=== PATIENT | male | born 1955 | race Caucasian/White ===

== ENCOUNTER → 2019-11-23 11:02 | Outpatient (BNVA) | payer MEDICARE, SELFPAY | PROVIDERS: Family Provider Family Medicine; PCP Family Medicine; Visit Provider Family Medicine | DX: L57.0 Actinic keratosis (principal); R97.20 Elevated prostate specific antigen [PSA] | CPT/HCPCS: 84153 ==

== ENCOUNTER → 2019-12-03 10:18 | Outpatient (BNVA) | payer MEDICARE, BC, SELFPAY | PROVIDERS: Family Provider Family Medicine; PCP Family Medicine; Visit Provider Urology | DX: R39.9 Unspecified symptoms and signs involving the genitourinary system (principal); R97.20 Elevated prostate specific antigen [PSA] | CPT/HCPCS: 81001 ==

== ENCOUNTER → 2020-05-30 13:14 | Outpatient (BNVA) | payer BC, SELFPAY | PROVIDERS: Family Provider Family Medicine; PCP Family Medicine; Visit Provider Urology | DX: R97.20 Elevated prostate specific antigen [PSA] (principal) | CPT/HCPCS: 84153 ==

== ENCOUNTER 2020-06-09 13:39 | Outpatient (CLI) | payer MEDICARE, SELFPAY ==
--- NOTE | 2020-06-09 13:55 | USCV_ITS ---
Heraclio Noe Age: 65 Gender: M : 1955 Exam Date: 06/09/2020 14:18 Ordering Phys: Monisha Cooper BUSHLER BUSHLER Technologist: Tasneem Mendoza Exam Location: [facility]_ Indication: PAINFUL AREAS LT LEG PROCEDURES: Venous duplex imaging was performed in bilateral lower extremities. The following venous structures were evaluated: common femoral vein, profunda vein, proximal portion of the greater saphenous vein, superficial femoral vein, and the popliteal vein. In addition, the posterior tibial and peroneal trunk were evaluated. FINDINGS: Normal 2-D Doppler and augmentation and compressibility throughout the lower extremity venous structures. Additional imaging through the proximal calf veins also reveals no thrombus. Limited evaluation of the greater saphenous vein is patent with no thrombus.. CONCLUSIONS No evidence of right lower extremity DVT. No evidence of left lower extremity DVT. Chinedu Rodríguez MD (Electronically Signed) Final Date: 09 June 2020 16:12 S
== END 2020-06-09 13:40 | disposition home or self-care (01) ==
LOC: RAD 13:51
PROVIDERS: PCP Family Medicine; Visit Provider Nurse Practitioner
DX: M79.605 Pain in left leg (principal)
CPT/HCPCS: 93970

== ENCOUNTER → 2020-06-13 11:07 | Outpatient (BNVA) | payer MEDICARE, SELFPAY | PROVIDERS: PCP Family Medicine; Visit Provider Family Medicine | DX: I83.819 Varicose veins of unspecified lower extremity with pain (principal); R97.20 Elevated prostate specific antigen [PSA]; R03.0 Elevated blood-pressure reading, without diagnosis of hypertension; Z01.818 Encounter for other preprocedural examination | CPT/HCPCS: 80048 ==

== ENCOUNTER 2020-06-24 12:37 | Outpatient (CLI) | payer MEDICARE, SELFPAY ==
[2020-06-24] MEDS: iohexol 300 mg/mL 100 mL Btl IV (13:19)
--- NOTE | 2020-06-24 14:30 | CT_ITS ---
WS: [id number] CT ABDOMEN AND PELVIS WITH CONTRAST HISTORY: Leg pain and vein swelling, concern for pelivc mass TECHNIQUE: Imaging performed of the abdomen and pelvis with IV contrast. Single phase imaging of the abdomen. Coronal and sagittal reformats are submitted. All CT scans at [facility] use at least one of these dose optimization techniques: automated exposure control; mA and/or kV adjustment per patient size (includes targeted exams where dose is matched to clinical indication); or iterativ e reconstruction. IV CONTRAST: Omnipaque 300; 95 mL IV. Oral contrast: Yes. DLP: 1095.69 mGycm COMPARISON: None available. Lower thorax: Lung bases are clear. Heart is normal size. Small hiatal hernia. Liver/biliary system: Normal size liver. Areas of decreased attenuation along the falciform ligament from hepatic steatosis. No bile duct dilatation. Gallbladder: Mildly contracted gallbladder, no stones identified. Pancreas: Pancreatic head and uncinate process are prominent for patient's age. No discrete mass or a bnormal enhancement. Common bile duct at the pancreatic head and pancreatic duct are normal. Spleen: Normal. Adrenal glands: Normal. Right kidney: Normal. Left kidney: Normal size kidney. Cortical hypodensity measures 3 mm in the lower pole. Aorta: Mild atherosclerosis. No aneurysm. Lymphadenopathy: None. Free fluid: None. GI tract: Prior appendectomy. There is diffuse moderate fecal retention. No obstruction or mucosal th ickening. Abdominal wall: Unremarkable abdominal wall. No hernia. Pelvis: Nondistended urinary bladder. There is no free fluid or adenopathy. Prostate gland is small s ize and contain central calcifications. There is mild fat stranding adjacent to the seminal vesicles. Bones: Moderate disc space narrowing and osteochondrosis at L4-5. No osteoblastic or osteolytic bone disease. Partial fusion of the SI joints. CT/CT abdomen pelvis w con* [id number] IMPRESSION: 1. No pelvic mass is identified. There is no ascites. 2. Mild prominence of the pancreatic head and uncinate process with no discret e mass or abnormal enhancement. Suggest ultrasound follow-up to reevaluate the pancreas. Favor this is probably normal appearance for this patient. 3. Small hiatal hernia. 4. Prior appendectomy.
== END 2020-06-24 12:38 | disposition home or self-care (01) ==
LOC: RADWPI 12:45
PROVIDERS: PCP Family Medicine; Visit Provider Family Medicine
DX: M79.604 Pain in right leg (principal); M79.605 Pain in left leg; M79.89 Other specified soft tissue disorders; K44.9 Diaphragmatic hernia without obstruction or gangrene
CPT/HCPCS: 74177; Q9967

== ENCOUNTER → 2020-08-30 10:25 | Outpatient (BNVA) | payer MEDICARE, SELFPAY | PROVIDERS: PCP Family Medicine; Visit Provider Urology | DX: R97.20 Elevated prostate specific antigen [PSA] (principal) | CPT/HCPCS: 81003 ==

== ENCOUNTER → 2021-01-02 15:29 | Outpatient (BNVA) | payer MEDICARE, SELFPAY | PROVIDERS: PCP Family Medicine; Visit Provider Family Medicine | DX: I82.591 Chronic embolism and thrombosis of other specified deep vein of right lower extremity (principal); K21.00 Gastro-esophageal reflux disease with esophagitis, without bleeding; I10 Essential (primary) hypertension; Q45.3 Other congenital malformations of pancreas and pancreatic duct; R97.20 Elevated prostate specific antigen [PSA]; R73.9 Hyperglycemia, unspecified; J45.20 Mild intermittent asthma, uncomplicated | CPT/HCPCS: 80053; 83036; 84153 ==

== ENCOUNTER 2021-03-24 09:25 | Outpatient (CLI) | payer MEDICARE, SELFPAY ==
--- NOTE | 2021-03-24 09:37 | US_ITS ---
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 Liver is normal size and echogenicity with no mass or intrahepatic dilatati on. Gallbladder: Normally distended with no gallstones, wall thickening or pericholecystic fluid. Gallbladder wall thickness: 0.3 cm. Pancreas: Not well visualized. CBD: 0.6 cm. Right kidney: 10.2 cm x 5.8 cm x 4.3 cm. No mass, cortical thickening or hydronephrosis. Left kidney: 10.4 cm x 5.1 cm x 4.3 cm. No mass, cortical thickening or hydronephrosis. Spleen: Normal size and echogenicity. Abdominal aorta and IVC are within normal limits. No ascites. US/US abdomen complete* [id number] IMPRESSION: Normal complete abdomen ultrasound.
== END 2021-03-24 09:26 | disposition home or self-care (01) ==
LOC: RAD 09:31
PROVIDERS: PCP Family Medicine; Visit Provider Family Medicine
DX: Q45.3 Other congenital malformations of pancreas and pancreatic duct (principal)
CPT/HCPCS: 76700

== ENCOUNTER 2021-07-17 16:19 | Emergency (ER) | payer MEDICARE, SELFPAY ==
[2021-07-17 16:49] VITALS: BP 172/100; PULSE 78; RESP 16; TEMP 36.8; O2SAT 95
--- NOTE | 2021-07-17 17:33 | XRR_ITS ---
PROCEDURE INFORMATION: Exam: XR Chest Exam date and time: 07/17/2021 5:33 PM Age: 66 years old Clinical indication: Sternal or substernal pain; Prior surgery; Surgery type: Trach; Additional info: Chest pain TECHNIQUE: Imaging protocol: XR of the chest. Views: 1 view. COMPARISON: CT abdomen pelvis w con* [id number] 06/24/2020 1:11 PM FINDINGS: Lungs: Unremarkable. No consolidation. Pleural spaces: Unremarkable. No pleural effusion. No pneumothorax. Heart/Mediastinum: Unremarkable. No cardiomegaly. Bones/joints: Unremarkable. XR/XR chest 1V portable [id number] IMPRESSION: Negative for infiltrate
--- NOTE | 2021-07-17 18:41 | ED_ITS ---
HPI - Chest Pain General: Chief Complaint: Chest Pain Stated Complaint: SENT BY PCP FOR COMPLETE CHECK OUT Time Seen by Provider: 07/17/21 18:32 History of Present Illness: HPI narrative: This patient is a 66-year-old male who presents to the emergency department complaint of chest pain has been off and on for weeks. Patient believes he just underneath a lot of stress. Patient within the past 6 months has lost his stepfather and his mother. Patient has a lso had a difficulty settling the estate of his mother. 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 Patient does have a history of cancer and has a chronic tracheostomy since 1985. Will do medical evaluation treat as needed. MD complaint: chest pain Onset (ago): week(s) Timing of current episode: episodic Pain location: substernal Pain radiation: none Severity: moderate Quality: tightness and aching Relieving factors: nothing Exacerbating factors: nothing Associated symptoms: Deny abdominal pain, dyspnea, fever(s), nausea, palpitations or vomiting Review of Systems General: Reports: 10 or more systems reviewed and unremarkable except in HPI and below Const: Denies: fever(s), chills, body aches or fatigue Eyes: Denies: change in vision or blurry vision ENMT: Denies: throat pain, hoarseness or mouth pain Card: Reports: chest pain; Denies: palpitations, irregular heart rhythm, edema, swelling of feet/ankles or lightheadedness Resp: Reports: non-productive cough; Denies: dyspnea, productive cough, wheezing or pain on inspiration GI: Denies: abdominal pain, nausea or vomiting : Denies: flank pain, dysuria, urinary frequency, urinary urgency or urinary hesitancy Musc: Denies: neck pain, back pain, extremity pain, extremity swelling, joint pain, joint swelling, joint redness, joint warmth or limited range of motion Skin/Breast: Denies: rash, pruritus, erythema or skin tenderness Neuro: Denies: headache(s), numbness in extremities or weakness in extremities Psych: Denies: anxiety or depression PFSH ED PFSH: Medical History Adenoid cystic carcinoma Allergic rhinitis Asthma Elevated PSA Chronically elevated PSA with no accelerating trend over time. Normal ELIF. Has declined prostate biopsy. We will only refer back to urology if he is having symptoms and wants to have a prostate biopsy GERD with esophagitis Hypertension Left varicocele Malignant hypertension Nocturia Surgical History H/O circumcision History of appendectomy History of tracheostomy Hx of tonsillectomy S/P hemorrhoidectomy Family History Grandmother Diabetes Social History Smoking and tobacco status: former smoker Alcohol intake: never Marital status: Current occupational status: employed History of recent travel: No Physical Exam Const: COMMON NORMALS: no acute distress, average body habitus, patient oriented x3, no limitations, healthy appearing, alert and well nourished HENMT: COMMON NORMALS: normocephalic, atraumatic, hearing grossly normal bilaterally, external ears normal, EAC's normal, TM's normal bilaterally, Normal external nose present, Normal nasal mucous membranes and turbinates present, moist oral mucous membranes, oropharynx normal, dentition normal and gingiva normal HEAD & SCALP: normocephalic and atraumatic NOSE: Normal external nose present and Normal nasal mucous membranes and turbinates present EXTERNAL EAR: Yes external ears normal EXTERNAL AUDITORY CANAL: EAC's normal TYMPANIC MEMBRANE: TM's normal bilaterally Neck/C-Spine: COMMON NORMALS: full ROM, no lymphadenopathy, supple, no meningeal signs, no JVD, Thyroid normal and No carotid bruits THYROID: Thyroid normal Chest: COMMONS NORMALS: normal inspection of the chest, normal palpation of entire chest wall, normal inspection of the breasts and normal palpation of the breasts Breast/axilla inspection: Yes normal inspection of the breasts BREAST/AXILLA PALPATION: Yes normal palpation of the breasts Resp: COMMON NORMALS: normal respiratory effort, No retractions, No use of accessory muscles, clear to auscultation bilaterally and percussion normal AUSCULTATION: clear to auscultation bilaterally PERCUSSION: percussion normal Cardio: COMMON NORMALS: no JVD, regular rate, regular rhythm, S1 normal heart sound present, S2 normal heart sound present, No gallops present (Cardio), No clicks present (Cardio), No murmurs present (Cardio), No rub (Cardio) and Peripheral pulses 2+ throughout RATE: regular rate RHYTHM: regular rhythm HEART SOUNDS: S1 normal heart sound present and S2 normal heart sound present PERIPHERAL PULSES: Peripheral pulses 2+ throughout GI: COMMON NORMALS: Normal to inspection, nondistended, normoactive bowel sounds present, Soft to palpation, non-tender, No hepatosplenomegaly present, no masses and no bruits PALPATION: Yes Soft to palpation and Yes No hepatosplenomegaly present : COMMON NORMALS: Yes no CVA tenderness BLADDER/KIDNEY EXAM: Yes no CVA tenderness Back/Pelvis: COMMON NORMALS: no CVA tenderness, thoracic and lumbar spine normal to inspection, no thoracic nor lumbar tenderness, thoraco-lumbar ROM normal and straight leg raise negative bilaterally Extremity: COMMON NORMALS: normal to inspection, full ROM, capillary refill normal, no joint enlargement, no clubbing, cyanosis or edema, no calf tenderness and no pedal edema Neuro: COMMON NORMALS: patient oriented x3 SENSORIUM/ORIENTATION: Yes alert MENINGEAL SIGNS: Yes no meningeal signs Course Reevaluation(s): Reevaluation #1: Negative evaluation in the emergency department for any acute cardiac issues. Patient atypical chest pain most likely is related to his chronic history and stress related. Patient states he has been prescribed anxiety medication from his primary care physician. Patient was Covid negative. Patient is to continue all home medications. Discuss further with primary care physician if any changes need to be made to his anxiety medications. Follow-up with PCP in 2 to 3 days. Time: 20:15 Vital Signs: Vital signs: Vital Signs Temperature 97.8 F 07/17/21 20:13 Pulse Rate 64 07/17/21 20:13 Respiratory Rate 18 07/17/21 20:13 Blood Pressure 145/89 07/17/21 20:13 Pulse Oximetry 97 07/17/21 20:13 MDM - Chest Pain MDM Narrative: Medical decision making narrative: Negative evaluation in the emergency department for any acute cardiac issues. Patient atypical chest pain most likely is related to his chronic history and stress related. Patient states he has been prescribed anxiety medication from his primary care physician. Patient was Covid negative. Patient is to continue all home medications. Discuss further with primary care physician if any changes need to be made to his anxiety medications. Follow-up with PCP in 2 to 3 days. Medical Records: Attestation: I reviewed the patient's medical records. Lab Data: Attestation: I reviewed the patient's lab results. Labs: Lab Results 07/17/21 07/17/21 07/17/21 19:05 19:18 19:18 WBC 4.5 10^3/uL 10^3/ uL (4.0-10.0) RBC 5.46 10^6/uL H 10 ^6/uL (4.1-5.3) Hgb 18.0 g/dL H g/dL (11.7-16.6) Hct 50.5 % % (42.0-52.0) MCV 92.5 fl fl (80-94) MCH 33.0 pg pg (28.0-34.0) MCHC 35.6 g/dL g/dL (30.0-36.0) RDW 12.9 % % (12.1-15.1) Plt Count 163 10^3/cmm 10^3 /cmm (130-400) MPV 9.9 fL fL (7.4-10.4) Neut % (Auto) 59.3 % % Lymph % (Auto) 20.0 % % [place] % (Auto) 15.5 % % Eos % (Auto) 4.3 % % Baso % (Auto) 0.7 % % Neut # (Auto) 2.64 10^3/uL 10^3 /uL (1.8-7.7) Lymph # (Auto) 0.9 10^3/uL 10^3/ uL (0.8-4.8) [place] # (Auto) 0.7 10^3/uL 10^3/ uL (0.2-0.9) Eos # (Auto) 0.2 10^3/uL 10^3/ uL (0.0-0.8) Baso # (Auto) 0.0 10^3/uL 10^3/ uL (0.0-0.1) Nucleated RBC % (a uto) 0 % % Nucleated RBCs # 0.0 /100WBC /100W BC PT INR APTT Sodium 138 mmol/L mmol/L (136-145) Potassium 4.0 mmol/L mmol/L (3.5-5.1) Chloride 97 mmol/L L mmol/ L (98-107) Carbon Dioxide 25 mmol/L mmol/L (22-29) Anion Gap 20.0 H (5-19) BUN 10 mg/dL mg/dL (8-23) Creatinine 0.7 mg/dL mg/dL (0.7-1.2) GFR Calculation 112.1 mL/min mL/m in (90-130) Glucose 95 mg/dL mg/dL (65-115) Calculated Osmolal ity 285 mOsm/kg mOsm/ kg (285-295) Calcium 9.6 mg/dL mg/dL (8.5-10.5) Total Bilirubin 0.7 mg/dL mg/dL (0.15-1.2) AST 54 U/L H U/L (0-40) ALT 54 U/L H U/L (0-41) Alkaline Phosphata se 78 IU/L IU/L (40-130) Troponin T Baselin e NT-Pro-B Natriuret Pep 60 pg/mL pg/mL (0-125) Total Protein 7.4 g/dL g/dL (6.6-8.7) Albumin 4.7 g/dL g/dL (3.5-5.2) Globulin 2.7 g/dL g/dL (1.3-4.6) Lipase 62 U/L H U/L (13-60) SARS-CoV-2 Ag (Rap id) Negative (Negative) 07/17/21 07/17/21 19:18 19:18 WBC RBC Hgb Hct MCV MCH MCHC RDW Plt Count MPV Neut % (Auto) Lymph % (Auto) [place] % (Auto) Eos % (Auto) Baso % (Auto) Neut # (Auto) Lymph # (Auto) [place] # (Auto) Eos # (Auto) Baso # (Auto) Nucleated RBC % (a uto) Nucleated RBCs # PT 14.40 SECONDS SEC ONDS (12.1-14.9) INR 1.09 (0.8-1.2) APTT 27.9 SECONDS SECO NDS (23.9-36.7) Sodium Potassium Chloride Carbon Dioxide Anion Gap BUN Creatinine GFR Calculation Glucose Calculated Osmolal ity Calcium Total Bilirubin AST ALT Alkaline Phosphata se Troponin T Baselin e 7 ng/L ng/L (0-15) NT-Pro-B Natriuret Pep Total Protein Albumin Globulin Lipase SARS-CoV-2 Ag (Rap id) Imaging Data^: CXR: Attestation: I personally reviewed and interpreted this imaging study as follows: Radiologist's impression: IMPRESSION: Negative for infiltrate EKG Data^: EKG 1: Attestation: I personally reviewed and interpreted this EKG as follows: EKG interpretation date: 07/17/21 EKG interpretation time: 19:29 Prior EKG tracings: not available for review Interpretation: Sinus rhythm with a intermediate access right bundle branch block heart rate 63 Discharge Plan Discharge Patient Disposition: Home Clinical Impression: Atypical chest pain Condition: Stable Prescriptions: No Action clonazepam 0.5 mg tablet 0.5 mg PO BID PRN (Reason: anxiety) 14 Days Qty: 28 RF: 0 zinc 50 mg tablet 50 mg PO DAILY RF: 0 Pumpkin Seed Oil See Rx Instructions .ROUTE .COMPLEX RF: 0 selenium 200 mcg capsule 200 mcg PO DAILY RF: 0 ashwagaw 1 tab PO DAILY RF: 0 astragalus root 470 mg capsule 470 mg PO DAILY RF: 0 calcium carbonate [Calcium 500] 500 mg calcium (1,250 mg) tablet,chewable 500 mg PO DAILY RF: 0 cinnamon bark 500 mg capsule 500 mg PO DAILY RF: 0 coenzyme Q10 [Co Q-10] 10 mg capsule 10 mg PO DAILY RF: 0 Curcumin 95 % powder See Rx Instructions .ROUTE .COMPLEX RF: 0 cholecalciferol (vitamin D3) 50,000 unit capsule 50,000 unit PO DAILY RF: 0 ascorbic acid (vitamin C) 500 mg tablet extended release 500 mg PO DAILY RF: 0 Fish, Flax andBorage Oil(Prim) 400-400-200 mg capsule 1 cap PO DAILY RF: 0 jcarlos root xt-fennel sd xt 5-4 mg/5 mL liquid 4 - 5 ml PO DAILY RF: 0 icarium 1 tab PO DAILY RF: 0 Kelp (iodine) 150 mcg tablet 150 mcg PO DAILY RF: 0 magnesium 200 mg tablet ? mg PO DAILY RF: 0 resveratrol 50 mg capsule See Rx Instructions PO .COMPLEX RF: 0 saw palmetto 500 mg capsule 500 mg PO BID RF: 0 Willy's wort 300 mg capsule 300 mg PO DAILY RF: 0 thyroid blend See Rx Instructions .ROUTE .COMPLEX RF: 0 Urinozinc Prostate Formula [id number] ap-nkl-ne-mg-mg capsule 1 cap PO DAILY RF: 0 vision essential herbal blend See Rx Instructions .ROUTE .COMPLEX RF: 0 cetirizine [All Day Allergy (cetirizine)] 10 mg tablet 10 mg PO DAILY MDD SEE PHARMACY COMMENT PRN (Reason: Allergy Symptoms) RF: 0 albuterol sulfate [ProAir HFA] 90 mcg/actuation HFA aerosol inhaler 2 puff INHALATION QID PRN (Reason: shortness of breath or wheezing) 30 Days Qty: 18 RF: 5 Xarelto 20 mg tablet 20 mg PO DAILY 30 Days Qty: 30 RF: 5 amlodipine 10 mg tablet 10 mg PO DAILY 90 Days Qty: 90 RF: 1 omeprazole 20 mg capsule,delayed release(DR/EC) 20 mg PO BID 90 Days Qty: 180 RF: 1 garlic 341 mg Capsule 341 mg PO DAILY RF: 0 vitamin K 1 mg/0.5 mL Solution 1 mg PO DAILY RF: 0 potassium 99 mg Tablet 99 mg PO DAILY RF: 0 Vitamin D3 50 mcg (2,000 unit) Tablet 50 mcg PO DAILY RF: 0 hydrochlorothiazide 25 mg tablet 12.5 mg PO DAILY RF: 0 losartan 100 mg tablet 50 mg PO DAILY RF: 0 Discharge Orders: Discharge ED (Routine); Ordered 07/17/21 Ordered By: Perez Walden Referrals: Verna Sexton MD [Primary Care Provider] - Discharge Diet: Advance as tolerated Discharge Activity: Resume usual activity Patient Instructions: Opioid Safety Activity Restrictions/Additional Instructions: Patient is to continue all home medications. Discuss further with primary care physician if any changes need to be made to his anxiety medications. Follow-up with PCP in 2 to 3 days. Coding Level of Care Code ED Power Sweeper Operator for Joseling Fwd Exam Comprehensive
[2021-07-17 19:02] VITALS: BP 149/87; PULSE 67; RESP 18; TEMP 36.9; O2SAT 97
[2021-07-17 19:24] LABS: Basophils % 0.7 %; Eosinophils # 0.2 10^3/uL (0.0-0.8); Eosinophils % 4.3 %; Hematocrit 50.5 % (42.0-52.0); Lymphocytes # 0.9 10^3/uL (0.8-4.8); Mean Corpuscular HGB Conc 35.6 g/dL (30.0-36.0); Mean Corpuscular Volume 92.5 fl (80-94); Mean Platelet Volume 9.9 fL (7.4-10.4); Monocytes # 0.7 10^3/uL (0.2-0.9); Monocytes % 15.5 %; Neutrophils # 2.64 10^3/uL (1.8-7.7); Neutrophils % 59.3 %; Nucleated Red Blood Cells % 0 %; Platelet Count 163 10^3/cmm (130-400); Red Blood Count 5.46 10^6/uL (4.1-5.3); Red Cell Distribution Width 12.9 % (12.1-15.1); White Blood Count 4.5 10^3/uL (4.0-10.0)
--- NOTE | 2021-07-17 19:33 | ECG_ITS ---
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 Measurements Intervals [place] Rate: 64 P: 65 SD: 166 QRS: 102 QRSD: 146 T: 47 QT: 472 QTc: 488 Interpretive Statements SINUS RHYTHM INDETERMINATE AXIS RIGHT BUNDLE BRANCH BLOCK [120+ ms QRS DURATION, UPRIGHT V1, 40+ ms S IN I/aVL/V4/V5/V6] No previous ECG available for comparison Electronically Signed On 07-19-2021 23:38:50 CDT by Cezar Holley M.D. [id number]
[2021-07-17] MEDS: aspirin 81 mg Chew Tablet 324 MG PO (19:38)
[2021-07-17 19:40] LABS: SARS Covid-2 Antigen Negative (Negative)
[2021-07-17 19:45] LABS: INR 1.09 (0.8-1.2)
[2021-07-17 19:46] LABS: Partial Thromboplastin Time 27.9 SECONDS (23.9-36.7)
[2021-07-17 19:53] LABS: Troponin(5th) Baseline 7 ng/L (0-15)
[2021-07-17 19:56] LABS: Alanine Aminotransferase 54 U/L (0-41); Albumin Level 4.7 g/dL (3.5-5.2); Alkaline Phosphatase 78 IU/L (40-130); Aspartate Amino Transferase 54 U/L (0-40); Blood Urea Nitrogen 10 mg/dL (8-23); Calcium 9.6 mg/dL (8.5-10.5); Carbon Dioxide 25 mmol/L (22-29); Chloride 97 mmol/L (98-107); Creatinine Clr Calc Pharmacy 85.0488; Globulin 2.7 g/dL (1.3-4.6); Glomerular Filtration Rate 112.1 mL/min (90-130); Glucose 95 mg/dL (65-115); Lipase 62 U/L (13-60); NT Pro B Type Natriuretic Pept 60 pg/mL (0-125); Osmolality Calculated 285 mOsm/kg (285-295); Sodium 138 mmol/L (136-145); Total Bilirubin 0.7 mg/dL (0.15-1.2); Total Protein 7.4 g/dL (6.6-8.7)
[2021-07-17 20:13] VITALS: BP 145/89; PULSE 64; RESP 18; TEMP 36.6; O2SAT 97
[2021-07-17 20:15] VITALS: BP 148/89; PULSE 64; RESP 18; TEMP 36.6; O2SAT 97
--- NOTE | 2021-07-17 23:33 | ECG_ITS ---
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 Measurements Intervals [place] Rate: 63 P: 68 NC: 141 QRS: 99 QRSD: 146 T: 47 QT: 447 QTc: 461 Interpretive Statements SINUS RHYTHM INDETERMINATE AXIS RIGHT BUNDLE BRANCH BLOCK [120+ ms QRS DURATION, UPRIGHT V1, 40+ ms S IN I/aVL/V4/V5/V6] Compared to ECG 07/17/2021 19:28:53 No significant changes Electronically Signed On 07-19-2021 23:38:59 CDT by Cezar Holley M.D. [id number]
== END 2021-07-17 20:23 | disposition home or self-care (01) ==
PROVIDERS: Nurse Practitioner Family; Emergency Provider Emergency Medicine; PCP Family Medicine
DX: R07.89 Other chest pain (principal); I10 Essential (primary) hypertension; Z87.891 Personal history of nicotine dependence; Z20.822 Contact with and (suspected) exposure to COVID-19
CPT/HCPCS: 71045; 80053; 83690; 83880; 84484; 85025; 85610; 85730; 87426; 93005; 99283

== ENCOUNTER → 2022-02-05 10:33 | Outpatient (BNVA) | payer MEDICARE, SELFPAY | PROVIDERS: PCP Family Medicine; Visit Provider Family Medicine | DX: J45.909 Unspecified asthma, uncomplicated (principal); I82.401 Acute embolism and thrombosis of unspecified deep veins of right lower extremity; I10 Essential (primary) hypertension; I82.591 Chronic embolism and thrombosis of other specified deep vein of right lower extremity; K21.00 Gastro-esophageal reflux disease with esophagitis, without bleeding; L82.1 Other seborrheic keratosis; J45.20 Mild intermittent asthma, uncomplicated; R97.20 Elevated prostate specific antigen [PSA] | CPT/HCPCS: 80053; 83690; 84153; 85025 ==

== ENCOUNTER → 2022-03-19 09:57 | Outpatient (BNVA) | payer MEDICARE, SELFPAY | PROVIDERS: PCP Family Medicine; Visit Provider Internal Medicine Cardiovascular Disease | DX: R07.89 Other chest pain (principal); I10 Essential (primary) hypertension; Z87.891 Personal history of nicotine dependence | CPT/HCPCS: 99214 ==

== ENCOUNTER 2022-09-27 12:16 | Outpatient (CLI) | payer MEDICARE, SELFPAY ==
[2022-09-27 12:39] VITALS: BMI 20.9
--- NOTE | 2022-09-27 12:47 | ECG_ITS ---
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 Interpretive Statements NAME OF STUDY: TREADMILL STRESS TEST INDICATION: Chest Pain; Shortness of Breath PROCEDURE: At the baseline, the patient's blood pressure was 142/94 mm Hg with a heart rate of 64 bpm and oxygen saturation of 98%. The baseline electrocardiogram showed normal sinus rhythm with RBBB. Indeterminate axis. Secondary ST and T wave changes. ??? The patient exercised for 8 minutes and 6 seconds on a standard Pierre protocol. Patient attained a maximum heart rate of 153 beats per minute( 101 % of the maximum predicted heart rate) with a blood pressure at the peak exercise of 241/88 mm Hg and oxygen saturation of 92%. The EKG at the peak exercise revealed sinus tachycardia with no new ST and T wave changes. Patient did not have any chest pain or any significant cardiac arrhythmias with the exercise. ??? During the recovery phase, there were no new changes. ??? Blood pressure at the end of the recovery phase was 127/87 mm Hg with a heart rate of 87 beats per minute and oxygen saturation of 97%. ??? CONCLUSION: 1. Normal EKG response to treadmill exercise. Sensitivity of this finding is limited due to baseline ST-T wave changes. 2. No exercise-induced chest pain or cardiac arrhythmia. 3. Excellent exercise tolerance, attained a maximum of 10.2 METs Electronically Signed On 09-29-2022 11:34:48 FAMILY PHYSICIAN by Liza Chase M.D. [email or web address] [email or web address]/[id number]
[2022-09-27 13:28] VITALS: BP 127/87; PULSE 82
== END 2022-09-27 12:17 | disposition home or self-care (01) ==
PROVIDERS: PCP Family Medicine; Visit Provider Internal Medicine Cardiovascular Disease
DX: R07.9 Chest pain, unspecified (principal); R06.02 Shortness of breath
CPT/HCPCS: 93017

== ENCOUNTER → 2023-03-18 11:25 | Outpatient (BNVA) | payer MEDICARE, SELFPAY | PROVIDERS: PCP Family Medicine; Visit Provider Internal Medicine Cardiovascular Disease | DX: R07.89 Other chest pain (principal); R00.2 Palpitations; I10 Essential (primary) hypertension; K21.00 Gastro-esophageal reflux disease with esophagitis, without bleeding; I83.90 Asymptomatic varicose veins of unspecified lower extremity; I45.10 Unspecified right bundle-branch block | CPT/HCPCS: 93005; 99214 ==

== ENCOUNTER → 2023-03-19 10:49 | Outpatient (BNVA) | payer MEDICARE, SELFPAY | PROVIDERS: PCP Family Medicine; Visit Provider Internal Medicine Cardiovascular Disease | DX: R00.2 Palpitations (principal); R00.0 Tachycardia, unspecified | CPT/HCPCS: 93270 ==

== ENCOUNTER → 2023-04-22 10:48 | Outpatient (BNVA) | payer MEDICARE, SELFPAY | PROVIDERS: PCP Family Medicine; Visit Provider Family Medicine | DX: R00.2 Palpitations (principal); R97.20 Elevated prostate specific antigen [PSA]; I10 Essential (primary) hypertension; I82.401 Acute embolism and thrombosis of unspecified deep veins of right lower extremity | CPT/HCPCS: 80053; 80061; 84153; 84443; 85025 ==

== ENCOUNTER 2023-06-14 08:49 | Outpatient (CLI) | payer MEDICARE, SELFPAY ==
--- NOTE | 2023-06-14 09:30 | USCV_ITS ---
Heraclio Noe Age: 68 Gender: M : 1955 Exam Date: 06/14/2023 09:26 Ordering Phys: Verna Sexton MD Technologist: Jenna Lieberman Exam Location: [place] Indication: Prior hisory of rt leg dvt. HISTORY: History of Rt Leg DVT. Now off thinners for bx PROCEDURES: Venous duplex imaging was performed in only the right lower extremity. The following venous structures were evaluated: common femoral vein, profunda vein, proximal portion of the greater saphenous vein, superficial femoral vein, and the popliteal vein. In addition, the posterior tibial and peroneal trunk were evaluated. Serial compression, augmentation maneuvers, and spectral Doppler flow evaluation were performed. FINDINGS: DVT..non occlusive Rt FV prox thru distal. (some small flow seen) Rt POP no dvt seen but augmentation is poor Rt Peroneal has debris and flow [employer] one of the vessels is occluded but the other is opened. Rt pop fossa Bakers cyst noted. CONCLUSIONS Called prellim at 9:55 to Denisha SORTO Non occlusive Right Femoral vein dvt proximal to distal Right popliteal appears patent but poor augmentation Chronic debris Rt Peroneal Occlusion PTV, additional paired PTV is patent Right popliteal cyst 3.5 x 1.7cm Chinedu Rodríguez MD (Electronically Signed) Final Date: 14 June 2023 11:06 S
== END 2023-06-14 08:50 | disposition home or self-care (01) ==
PROVIDERS: PCP Family Medicine; Visit Provider Family Medicine
DX: I82.411 Acute embolism and thrombosis of right femoral vein (principal); I82.441 Acute embolism and thrombosis of right tibial vein; M79.661 Pain in right lower leg; M79.89 Other specified soft tissue disorders; M71.21 Synovial cyst of popliteal space [Baker], right knee; C61 Malignant neoplasm of prostate; Z86.718 Personal history of other venous thrombosis and embolism
CPT/HCPCS: 93971

== ENCOUNTER 2023-07-23 10:02 | Outpatient (CLI) | payer MEDICARE, SELFPAY ==
--- NOTE | 2023-07-23 10:30 | USCV_ITS ---
Heraclio Noe Age: 68 Gender: M : 1955 Exam Date: 07/23/2023 10:20 Ordering Phys: Verna Sexton MD Technologist: [place] [facility] [place] [facility] [place]: hx of dvt PROCEDURES: Venous duplex imaging was performed in only the left lower extremity. The following venous structures were evaluated: common femoral vein, profunda vein, proximal portion of the greater saphenous vein, superficial femoral vein, and the popliteal vein. In addition, the posterior tibial and peroneal trunk were evaluated. FINDINGS: Normal 2-D Doppler and augmentation and compressibility throughout the lower extremity venous structures. Additional imaging through the proximal calf veins also reveals no thrombus. Limited evaluation of the greater saphenous vein is patent with no thrombus. CONCLUSIONS No DVT left lower extremity. Dr. Alma Brunner DO (Electronically Signed) Final Date: 23 July 2023 14:46 S
== END 2023-07-23 10:03 | disposition home or self-care (01) ==
PROVIDERS: PCP Family Medicine; Visit Provider Family Medicine
DX: M79.605 Pain in left leg (principal); M79.89 Other specified soft tissue disorders; Z86.718 Personal history of other venous thrombosis and embolism
CPT/HCPCS: 93971

== ENCOUNTER → 2023-09-26 14:27 | Outpatient (BNVA) | payer MEDICARE, SELFPAY | PROVIDERS: PCP Family Medicine; Visit Provider Internal Medicine Cardiovascular Disease | DX: R00.2 Palpitations (principal); I10 Essential (primary) hypertension; K21.00 Gastro-esophageal reflux disease with esophagitis, without bleeding; I83.90 Asymptomatic varicose veins of unspecified lower extremity; C61 Malignant neoplasm of prostate | CPT/HCPCS: 99214 ==

== ENCOUNTER → 2023-11-13 10:10 | Outpatient (BNVA) | payer MEDICARE, SELFPAY | PROVIDERS: PCP Family Medicine; Visit Provider Family Medicine | DX: I10 Essential (primary) hypertension (principal); R00.2 Palpitations; I82.591 Chronic embolism and thrombosis of other specified deep vein of right lower extremity; C61 Malignant neoplasm of prostate; R23.2 Flushing; T50.905A Adverse effect of unspecified drugs, medicaments and biological substances, initial encounter | CPT/HCPCS: 80053; 84153; 84403; 84439; 84443; 84481; 85025 ==

== ENCOUNTER → 2024-01-01 16:55 | Outpatient (BNVA) | payer MEDICARE, SELFPAY | PROVIDERS: PCP Family Medicine; Visit Provider Nurse Practitioner | DX: R07.89 Other chest pain (principal); I25.10 Atherosclerotic heart disease of native coronary artery without angina pectoris | CPT/HCPCS: 71046 ==

== ENCOUNTER → 2024-01-20 15:23 | Outpatient (BNVA) | payer MEDICARE, SELFPAY | PROVIDERS: PCP Family Medicine; Visit Provider Family Medicine | DX: R07.81 Pleurodynia (principal); R04.2 Hemoptysis | CPT/HCPCS: 71101 ==

== ENCOUNTER → 2024-02-03 11:21 | Outpatient (BNVA) | payer MEDICARE, SELFPAY | PROVIDERS: PCP Family Medicine; Visit Provider Family Medicine | DX: Z12.5 Encounter for screening for malignant neoplasm of prostate (principal); R07.81 Pleurodynia; C61 Malignant neoplasm of prostate; J44.9 Chronic obstructive pulmonary disease, unspecified | CPT/HCPCS: 71046; 80053; 84153; 85025 ==

== ENCOUNTER → 2025-04-13 10:32 | Outpatient (BNVA) | payer OTHER, MEDICARE, SELFPAY | PROVIDERS: PCP Family Medicine; Visit Provider Family Medicine | DX: Z12.5 Encounter for screening for malignant neoplasm of prostate (principal); I10 Essential (primary) hypertension; I82.591 Chronic embolism and thrombosis of other specified deep vein of right lower extremity; C61 Malignant neoplasm of prostate | CPT/HCPCS: 80053; 84153; 85025 ==